=== PATIENT | female | born 1950 | race Two or more races ===

== ENCOUNTER 2021-03-24 10:12 | Emergency (ER) | payer MEDICAID, OTHER ==
[~2021-03-24] VITALS: Ht 157.5 cm; Wt 65.8 kg
[2021-03-24] MEDS ORDERED: MORPHINE SULFATE 4 MG/ML SYR/VIAL ONE (13:00)
[2021-03-24] MEDS ORDERED: MORPHINE SULFATE 4 MG/ML SYR/VIAL IV ONE (13:00)
[2021-03-24] MEDS ORDERED: KETAMINE 50mg/ML 10ml Vial (500mg/10ml) IV ONE ×2 (14:30→14:53)
[2021-03-24 17:00] VITALS: BP 172/99
== END 2021-03-24 17:31 | disposition home or self-care (01) ==
LOC: ER 10:12
DX: S43.004A Unspecified dislocation of right shoulder joint, initial encounter (principal); S42.209A Unspecified fracture of upper end of unspecified humerus, initial encounter for closed fracture; M24.211 Disorder of ligament, right shoulder; X58.XXXA Exposure to other specified factors, initial encounter; Y93.89 Activity, other specified; Y92.89 Other specified places as the place of occurrence of the external cause; Y99.8 Other external cause status
CPT/HCPCS: 23650; 73020; 73030; 96374; 99152; 99153; 99285; J2270

== ENCOUNTER 2021-04-20 06:01 | Emergency (ER) | payer OTHER ==
[~2021-04-20] VITALS: Ht 152.4 cm; Wt 62.1 kg
[2021-04-20] MEDS ORDERED: MORPHINE SULFATE 4 MG/ML SYR/VIAL IV ONE (07:15)
[2021-04-20] MEDS ORDERED: ONDANSETRON HCL 4 MG/2 ML VIAL IV ONE (07:15)
[2021-04-20] MEDS ORDERED: SODIUM CHLORIDE 0.9% 1,000 ML IV ONE (07:15)
[2021-04-20 09:10] LABS: Basophils # (auto) 0.1 10 ^3/uL (0-0.2); Basophils % (auto) 0.5 % (0.0-2.0); Eosinophils # (auto) 0 10 ^3/uL (0-0.8); Eosinophils % (auto) 0.1 % (0.0-7.0); Hematocrit 47.2 % (36.0-46.0); Hemoglobin 15.7 g/dL (12.2-16.2); Lymphocytes # (auto) 1.5 10 ^3/uL (0.4-5.4); Lymphocytes % (auto) 13.7 % (10.0-50.0); Mean Corpuscular Hemoglobin 27.3 pg (28.0-32.0); Mean Corpuscular Hgb Conc. 33.2 g/dL (32.0-36.0); Mean Corpuscular Volume 82.3 fL (80.0-100.0); Monocytes # (auto) 0.3 10 ^3/uL (0-1.3); Monocytes % (auto) 2.9 % (0.0-12.0); Neutrophils # (auto) 8.9 10 ^3/uL (1.6-8.6); Neutrophils % (auto) 82.8 % (37.0-80.0); Nucleated Red Blood Cells % 0.3 %; Red Blood Cells 5.74 10^6/uL (4.0-5.20); Red Cell Distribution Width 13.3 % (11.8-14.3); White Blood Cell 10.7 10^3/uL (4.4-10.8)
[2021-04-20 09:27] LABS: Albumin 3.8 g/dL (3.4-5.0); Anion Gap 8 (5-15); Blood Urea Nitrogen 10 mg/dL (7-18); Calcium 8.9 mg/dL (8.5-10.1); Carbon Dioxide 21 mmol/L (21-32); Chloride 109 mmol/L (98-107); Glucose 101 mg/dL (74-106); Sodium 138 mmol/L (136-145)
[2021-04-20 09:29] LABS: Alanine Aminotransferase 22 U/L (13-56); Aspartate Aminotransferase 21 U/L (15-37); BUN/Creatinine Ratio 14.7; GFR African American 110 mL/min; GFR Non-African American 91 mL/min
[2021-04-20 09:34] LABS: Alkaline Phosphatase 51 U/L (45-117); Bilirubin, Total 0.7 mg/dL (0.2-1.0); Total Protein 8.6 g/dL (6.4-8.2)
[2021-04-20 11:03] VITALS: BP 156/82
[2021-04-20 11:28] LABS: Urine Bacteria NONE SEEN /hpf (None Seen); Urine Blood 2+ /uL (Negative); Urine WBC 4 /hpf (0 - 5)
== END 2021-04-20 13:34 | disposition home or self-care (01) ==
LOC: ER 06:01
DX: N39.0 Urinary tract infection, site not specified (principal); I10 Essential (primary) hypertension
CPT/HCPCS: 36415; 74176; 80053; 81001; 83880; 84484; 85025; 93005; 96361; 96374; 96375; 99285; J2270; J2405; J7030